=== PATIENT | male | born 1960 | race Caucasian/White ===

== ENCOUNTER → 2016-09-27 | Outpatient (CLI) | payer BC ==
[~2016-09-27] MED LIST: ATOR10TA88 PO; LEVO150T PO; LSN/20125 PO; MEGA D3 PO; NUTR1TAB4 PO
[2016-09-27 15:01] LABS: ESTIMATED AVERAGE GLUCOSE 120 mg/dl; HA1C FLAG Normal (Normal)
[2016-09-27 15:21] LABS: BLOOD UREA NITROGEN 17 mg/dl (7-18); BUN/CREATININE RATIO 15.7 (10-20); CALCIUM 9.2 mg/dl (8.5-10.1); CARBON DIOXIDE 29 mmol/L (21-32); CHLORIDE 101 mmol/L (98-107); GLUCOSE 110 mg/dl (70-99); POTASSIUM 3.8 mmol/L (3.5-5.1); SODIUM 138 mmol/L (136-145)
[2016-09-30 08:20] LABS: THYROGLOBULIN 0.4 NG/ML (2.8-40.9)
== END | disposition home or self-care (01) ==
LOC: C.LABSPEC 12:10
PROVIDERS: ATTEND Internal Medicine Geriatric Medicine
DX: C73 Malignant neoplasm of thyroid gland (principal); I10 Essential (primary) hypertension; E89.0 Postprocedural hypothyroidism; E83.119 Hemochromatosis, unspecified; Z86.39 Personal history of other endocrine, nutritional and metabolic disease

== ENCOUNTER → 2016-11-27 | Outpatient (CLI) | payer BC ==
[~2016-11-27] MED LIST changes: +ATOR10TA82 PO; -ATOR10TA88 PO
== END | disposition home or self-care (01) ==
LOC: C.LAB 13:49
PROVIDERS: ATTEND Internal Medicine Geriatric Medicine
DX: E89.0 Postprocedural hypothyroidism (principal)

== ENCOUNTER → 2017-03-20 | Outpatient (CLI) | payer BC ==
[~2017-03-20] MED LIST changes: -ATOR10TA82 PO; +ATOR10TA88 PO
[2017-03-20 15:04] LABS: BLOOD UREA NITROGEN 19 mg/dl (7-18); BUN/CREATININE RATIO 16.8 (10-20); CALCIUM 9.7 mg/dl (8.5-10.1); CARBON DIOXIDE 32 mmol/L (21-32); CHLORIDE 103 mmol/L (98-107); GLUCOSE 88 mg/dl (70-99); POTASSIUM 4.1 mmol/L (3.5-5.1); SODIUM 139 mmol/L (136-145)
[2017-03-20 15:16] LABS: CHOLESTEROL 125 mg/dl (0-200); HDL CHOLESTEROL 41 mg/dl; LDL CHOLESTEROL CALCULATED 42 mg/dl; TRIGLYCERIDES 209 mg/dl (0-150); VERY LOW DENSITY LIPOPROT CALC 42 mg/dl
[2017-03-21 06:25] LABS: ESTIMATED AVERAGE GLUCOSE 126 mg/dl; HA1C FLAG Normal (Normal)
[2017-03-22 10:37] LABS: THYROGLOBULIN 0.3 NG/ML (2.8-40.9)
== END | disposition home or self-care (01) ==
LOC: C.LAB 14:09
PROVIDERS: ATTEND Internal Medicine Geriatric Medicine
DX: C73 Malignant neoplasm of thyroid gland (principal); I10 Essential (primary) hypertension; E78.5 Hyperlipidemia, unspecified; E83.119 Hemochromatosis, unspecified; E89.0 Postprocedural hypothyroidism

== ENCOUNTER → 2017-10-23 | Outpatient (CLI) | payer BC ==
[~2017-10-23] MED LIST changes: +ATOR10TA82 PO; -ATOR10TA88 PO
[2017-10-23 12:34] LABS: HEMATOCRIT 47.5 % (42-52); HEMOGLOBIN 16.9 g/dL (14.0-18.0); MEAN CELL VOLUME 89.1 fL (80-100); MEAN CORPUSCULAR HEMOGLOBIN 31.7 pg (25-34); MEAN CORPUSCULAR HGB CONC 35.6 g/dl (32-36); PLATELET COUNT 223 K/uL (130-400); WHITE BLOOD COUNT 6.85 K/uL (4.8-10.8)
[2017-10-23 12:54] LABS: BASO % 0.1 %; BASO ABS # 0.01 K/uL (0-0.2); EOS % 3.5 %; EOS ABS # 0.24 K/uL (0-0.5); IG# 0.04 K/uL (0.00-0.02); LYMPH % 30.7 %; MONO ABS # 0.48 K/uL (0.11-0.59); NEUT % 58.1 %; NEUT ABS # 3.98 K/uL (1.4-6.5)
[2017-10-23 13:00] LABS: ALBUMIN 3.9 gm/dl (3.4-5.0); ALT/SGPT 49 U/L (12-78); BLOOD UREA NITROGEN 13 mg/dl (7-18); CALCIUM 9.3 mg/dl (8.5-10.1); CARBON DIOXIDE 26 mmol/L (21-32); CREATININE 1.05 mg/dl (0.60-1.40); GLUCOSE 95 mg/dl (70-99); POTASSIUM 3.9 mmol/L (3.5-5.1); SODIUM 136 mmol/L (136-145)
[2017-10-23 13:04] LABS: HEMOGLOBIN A1C 6.1 % (4.5-5.6)
[2017-10-23 13:11] LABS: ALKALINE PHOSPHATASE 85 U/L (45-117); AST/SGOT 32 U/L (15-37); TOTAL PROTEIN 7.5 gm/dl (6.4-8.2)
== END | disposition home or self-care (01) ==
LOC: C.LAB 11:11
PROVIDERS: ATTEND Internal Medicine Geriatric Medicine
DX: E11.9 Type 2 diabetes mellitus without complications (principal); C73 Malignant neoplasm of thyroid gland; I10 Essential (primary) hypertension; E83.119 Hemochromatosis, unspecified; E89.0 Postprocedural hypothyroidism; D47.2 Monoclonal gammopathy; N40.0 Benign prostatic hyperplasia without lower urinary tract symptoms; Z68.41 Body mass index [BMI] 40.0-44.9, adult

== ENCOUNTER → 2018-01-05 | Outpatient (CLI) | payer BC | END | disposition home or self-care (01) | LOC: C.LAB 13:17 | PROVIDERS: ATTEND Physician Assistant | DX: E89.0 Postprocedural hypothyroidism (principal) ==

== ENCOUNTER → 2018-04-08 | Outpatient (CLI) | payer BC ==
[~2018-04-08] MED LIST changes: +LISI20TA8 PO; -LSN/20125 PO
[2018-04-08 18:53] LABS: BLOOD UREA NITROGEN 21 mg/dl (7-18); CALCIUM 9.1 mg/dl (8.5-10.1); CARBON DIOXIDE 25 mmol/L (21-32); CHOLESTEROL 112 mg/dl (0-200); CREATININE 1.16 mg/dl (0.60-1.40); GLUCOSE 143 mg/dl (70-99); LDL CHOLESTEROL CALCULATED 20 mg/dl; POTASSIUM 3.6 mmol/L (3.5-5.1); SODIUM 136 mmol/L (136-145)
[2018-04-09 06:29] LABS: HEMOGLOBIN A1C 6.1 % (4.5-5.6)
== END | disposition home or self-care (01) ==
LOC: C.LAB 16:44
PROVIDERS: ATTEND Physician Assistant
DX: C73 Malignant neoplasm of thyroid gland (principal); I10 Essential (primary) hypertension; E89.0 Postprocedural hypothyroidism; E11.9 Type 2 diabetes mellitus without complications; E78.5 Hyperlipidemia, unspecified

== ENCOUNTER 2021-07-12 05:15 | Observation (INO) ==
--- NOTE | 2021-05-10 23:31 | PAT Medication Instructions ---
Medication Instructions Date of Service May 10, 2021 Home Medications Medication Instructions Recorded levothyroxine 150 mcg tablet 150 mcg PO QAM #90 tab 06/14/20 atorvastatin 10 mg tablet 10 mg PO HS #90 tab 08/03/20 3-in-1 Commode #1 ea 05/02/21 Wheeled Walker #1 ea 05/02/21 vit B6-mag cit,ox-potassium cit 3.75 mg-45 mg-45 mg-49.5 mg tablet ER (Theralith XR) 4 tab PO DAILY famotidine 20 mg tablet (Pepcid) 20 mg PO DAILY PRN naproxen sodium 220 mg tablet (Aleve) 220 mg PO Q12H PRN levothyroxine 150 mcg tablet 150 mcg PO QAM atorvastatin 10 mg tablet 10 mg PO HS esomeprazole magnesium 20 mg capsule,delayed release (Nexium) 20 mg PO QAM lisinopril 20 mg-hydrochlorothiazide 12.5 mg tablet 2 tab PO QAM ASK your surgeon for instructions naproxen sodium 220 mg tablet (Aleve) 220 mg PO Q12H PRN STOP taking 2 weeks before surgery (or as soon as possible if surgery is within 2 weeks) vit B6-mag cit,ox-potassium cit 3.75 mg-45 mg-45 mg-49.5 mg tablet ER (Theralith XR) 4 tab PO DAILY DO NOT take the morning of surgery famotidine 20 mg tablet (Pepcid) 20 mg PO DAILY PRN lisinopril 20 mg-hydrochlorothiazide 12.5 mg tablet 2 tab PO QAM Take morning of surgery With a small sip of water, OTHERWISE NOTHING TO EAT OR DRINK AFTER MIDNIGHT: levothyroxine 150 mcg tablet 150 mcg PO QAM esomeprazole magnesium 20 mg capsule,delayed release (Nexium) 20 mg PO QAM Take evening before surgery famotidine 20 mg tablet (Pepcid) 20 mg PO DAILY PRN (if needed) atorvastatin 10 mg tablet 10 mg PO HS Other Notes If you have any questions please call us at [phone] or [phone] or [phone] or [phone]
--- NOTE | 2021-05-13 09:19 | Anesthesiology Consultation ---
Date of Service May 13, 2021 Assessment & Plan (1) Encounter for pre-operative examination: COVID screening: Per assessment on 05/13: Travel screen negative, no known COVID- 19 positive contacts or current COVID-19 related symptoms. Patient vaccinated. Surgeon arranging preop COVID testing. Awaiting results. Chart Review Chart Review: Acceptable Risk for Surgery and Patient seen in Pre Admission Testing Teaching & Discussion Pre-Anesthesia Teaching/Discussion Notes: Instructed NPO after midnight before surgery,except medications with 15 cc of water. Medication instructions provided according to the PAT guidelines. History Surgery Operation Date: 06/07/21 10:40 Proposed Procedures p Left Total Hip Arthroplasty - Braeden Cox MD Height/Weight Height: 5 ft 11 in Weight: 123 kg Allergies Allergy/AdvReac Type Severity Reaction Status Date / Time latex Allergy Mild Rash Verified 05/11/21 14:53 Medications Home Medications Medication Instructions Recorded Confirmed Last Taken vit B6-mag cit,ox-potassium cit 4 tab PO DAILY tab 03/24/19 05/06/21 06/21/19 3.75 mg-45 mg-45 mg-49.5 mg tablet ER (Theralith XR) famotidine 20 mg tablet (Pepcid) 20 mg PO DAILY PRN 06/21/19 05/06/21 Unknown naproxen sodium 220 mg tablet 220 mg PO Q12H PRN 06/22/19 05/06/21 Unknown (Aleve) levothyroxine 150 mcg tablet 150 mcg PO QAM #90 tab 06/14/20 05/06/21 Unknown atorvastatin 10 mg tablet 10 mg PO HS #90 tab 08/03/20 05/06/21 Unknown 3-in-1 Commode #1 ea 05/02/21 05/02/21 Unknown Wheeled Walker #1 ea 05/02/21 05/02/21 Unknown esomeprazole magnesium 20 mg 20 mg PO QAM 05/02/21 05/06/21 Unknown capsule,delayed release (Nexium) lisinopril 20 2 tab PO QAM 05/06/21 05/06/21 Unknown mg-hydrochlorothiazide 12.5 mg tablet Past Medical History Medical History Bilateral hip joint arthritis Borderline diabetes GERD (gastroesophageal reflux disease) 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, phlebotomy as needed (most recent 07/2020) Hyperlipidemia Hypertension Hypothyroidism MGUS (monoclonal gammopathy of unknown significance) Follows with hematology Nephrolithiasis hx Obesity Osteoarthritis Thyroid cancer s/p thyroidectomy Exercise / Class Metabolic Activity II 4-5 Yardwork/Stairs/Walk up hill Past Family History Family History Father Cancer Other Hypertension No significant family history Past Surgical History Surgical History History of adenoidectomy History of cholecystectomy History of colonoscopy History of mandibular surgery elongated jaw repair History of orchiectomy History of thyroidectomy, total 2012 History of tonsillectomy History of tooth extraction Hx of lithotripsy Past Anesthesia History No Hx of Anesthesia Complications (except PONV) and No Family Hx of Anesthesia Complications History of PONV No Hx of Motion Sickness and History of PONV Social History Smoking Status: Never smoker Do You Dip or Chew Tobacco: No Hx Alcohol Use: Yes Alcohol type: beer alcohol intake frequency: holidays/special occasions only Hx Substance Use: No substance use type: does not use Review of Systems Patient denies chest pain, shortness of breath, dyspnea on exertion, fever, chills, cough, wheezing, palpitations. Physical Exam Vital Signs VITALS BP 142/82 P 63 TEMP 98.3 SP02 95%RA RESP 16 PHYSICAL Full cervical extension range of motion. Full TMJ range of motion. TMD 4 finger breaths Mallampati Score 1 (long tongue) Dentition: missing molars, right lower side tooth missing Lungs: clear throughout to auscultation Cardiac: regular rate and rhythm, no murmurs noted Spine: normal Carotid arteries: negative bruit Extremities: no edema Lab Results Anesthesia Preop Results Results Anesthesia Widget: WBC 5.98 K/uL (4.8-10.8) 05/13/21 Hgb 16.3 g/dL (14.0-18.0) 05/13/21 Hct 44.5 % (42-52) 05/13/21 Plt 212 K/uL (130-400) 05/13/21 Na 138 mmol/L (136-145) 05/13/21 K 3.9 mmol/L (3.5-5.1) 05/13/21 Cl 104 mmol/L (98-107) 05/13/21 CO2 28 mmol/L (21-32) 05/13/21 BUN 19 mg/dl (7-18) H 05/13/21 Creat 1.06 mg/dl (0.6-1.4) 05/13/21 Glucose Level 120 mg/dl (70-99) H 05/13/21 PT 10.0 Seconds (9.0-12.0) 05/13/21 PTT 24.9 Seconds (21.0-31.0) 05/13/21 INR 1.0 (0.9-1.1) 05/13/21 Blood Type A Positive 05/13/21 Antibody Screen NEGATIVE 05/13/21 Testing Electrocardiogram Date: 05/13/21 SB at 59bpm. unconfirmed report. Chest X-Ray Date: 05/13/21 Findings: + NAD
--- NOTE | 2021-07-09 11:08 | History and Physical Report ---
DATE OF ADMISSION: 07/12/2021 CHIEF COMPLAINT: Left hip and groin pain. HISTORY OF PRESENT ILLNESS: The patient is a 61-year-old gentleman who presents for surgical treatme nt of his left hip. He has got a 6-year history of gradually progressive increased pain and discomfo rt in his left hip. He takes Aleve, which helps minimally. He does have a history of hemochromatosi s in the past, treated with phlebotomy intermittently for the past 20 years. His hips really bother him. He limps all the time, but more as the day goes on. He has difficulty putting his shoes and so cks on. He has nighttime discomfort. Denies any back or radicular-type symptoms. PAST MEDICAL HISTORY: 1. Hypertension. 2. Thyroid cancer, status post resection. 3. Hemochromatosis x20 years. 4. Obesity, BMI of 38. PAST SURGICAL HISTORY: Includes: 1. Thyroid surgery. 2. Kidney stone surgery. 3. Cholecystectomy. 4. Testicular surgery. 5. Tonsillectomy. 6. Oral surgery. ALLERGIES: None. CURRENT MEDICATIONS: Include: 1. Levothyroxine. 2. Lisinopril/hydrochlorothiazide. 3. Atorvastatin. 4. Nexium. 5. Pepcid. 6. Aleve. 7. Vitamin B6. 8. Magnesium. SOCIAL HISTORY: A 61-year-old male. He lives in [place]. He is single. Rare alcohol intake. H e does state he has quite a bit of family and friends that will assist in his care. FAMILY HISTORY: No prostate cancer or heart disease. REVIEW OF SYSTEMS: Negative for diabetes. He does have a history of thyroid cancer, status post res ection. No history of DVT or PE. No known bleeding problems. He does have hemochromatosis treated with intermittent phlebotomies over the past 20 years. PHYSICAL EXAMINATION: GENERAL: A fairly large middle-aged male. Looks to be in reasonably good health. HEENT: Benign. NECK: Supple. No lymphadenopathy. LUNGS: Clear to auscultation. HEART: Has a regular rate and rhythm. ABDOMEN: Soft, nontender, nondistended. EXTREMITIES: Grossly neurovascularly intact except as follows: Examination of the left leg and hip reveals the patient walks with an antalgic gait. He is about 0.5 cm short on the left side compared to the right. No knee effusion. He has a very stiff hip with limited internal rotation to neutral a t best. This re-creates his pain. Negative straight leg raise. He is neurologically intact. X-RAYS: X-rays of the left hip were reviewed. It shows advanced left hip DJD. He has complete loss of his superior joint space and circumferentially around his hip. He has got osteophytes around the femoral head as well as the acetabulum. ASSESSMENT: A 61-year-old male with multiple medical comorbidities including obesity, hemochromatosi s, hypertension, thyroid cancer with advanced left hip degenerative joint disease. He has failed con servative measures and would like to have his left hip replaced. He is hoping to do this as an outpa tient. PLAN: We are going to take him to the operating room and do a left total hip replacement. The risks and benefits of this procedure were explained to the patient including, but not limited to DVT, PE, , infection, neurological injury, vascular injury, bleeding problem, pain, limited range of kaur on, stiffness, failure to relieve his symptoms, incomplete relief of symptoms, need for further surge ry in the future, fracture, leg length inequality, etc. The patient understands and desires to proce ed. Informed consent was obtained. We did talk about holding his lisinopril on the morning of surgery. He is planning to be discharged to home with some assistance from family and friends and home health. He is hoping to do this as an outpatient. We will see him back 2 weeks postop. Job ID: [id number]
[2021-07-12] MEDS ORDERED: LR 500ML BOLUS, THEN 15ML/HR IV SCH (06:00)
[2021-07-12] MEDS ORDERED: BUPIVACAINE LIPOSOME/PF 266 MG, BUPIVACAINE/EPINEPHRINE 50 ML, SODIUM CHLORIDE 0.9% 30 ... INFIL SCH (06:00)
[2021-07-12] MEDS ORDERED: TRANEXAMIC ACID 1,000 MG **IV Pre-op IV SCH (06:00)
[2021-07-12] MEDS ORDERED: LR 60ML/HR IV SCH (06:00)
[2021-07-12] MEDS ORDERED: ACETAMINOPHEN 500 MG TAB PO SCH (06:00)
[2021-07-12] MEDS ORDERED: GABAPENTIN 600 MG DOSE PO SCH (06:00)
[2021-07-12] MEDS ORDERED: FAMOTIDINE 20 MG TAB PO SCH (06:00)
[2021-07-12] MEDS ORDERED: LIDOCAINE 2%/EPINEPHRINE 1:200,000 20 ML SDV ONE (06:24)
[2021-07-12] MEDS ORDERED: PROPOFOL IV EMULSION 10 MG/ML 20 ML VIAL IV ONE (06:37)
[2021-07-12] MEDS ORDERED: LIDOCAINE 2% 2 ML VIAL/AMP(20MG/ML) INFIL ONE (06:37)
[2021-07-12] MEDS ORDERED: MoRPHine SULFATE PF 1 MG/ML 10 ML AMP/VIAL ONE (06:38)
[2021-07-12] MEDS ORDERED: MIDAZOLAM HCL 1 MG/ML 2ML VIAL ONE (06:38)
[2021-07-12] MEDS ORDERED: fentaNYL citrate 100 MCG/2 ML VIAL ONE ×2 (06:38→09:35)
[2021-07-12] MEDS ORDERED: EPINEPHrine INJ 1 MG/ML AMP ONE (06:39)
[2021-07-12] MEDS ORDERED: BUPIVACAINE 0.25% 30 ML VIAL ONE (06:39)
[2021-07-12] MEDS ORDERED: BUPIVACAINE 0.5 % 5 MG/1 ML MPF 30ML VIAL ONE (06:43)
--- NOTE | 2021-07-12 06:58 | History & Physical Bridge Note ---
Date of Service July 12, 2021 History & Physical Bridge Note I have examined the patient, reviewed the History & Physical and in the interval since the performance of the History & Physical I have noted the following changes of clinical significance: no changes noted
[2021-07-12] MEDS ORDERED: KETAMINE 50 MG/5 ML SYRINGE ONE (07:37)
[2021-07-12] MEDS ORDERED: VASOPRESSIN 20 UNIT/ML VIAL ONE (08:19)
[2021-07-12] MEDS ORDERED: GLYCOPYRROLATE 0.2 MG/ML VIAL ONE (08:19)
[2021-07-12] MEDS ORDERED: PHENYLEPHRINE HCL 10 MG/ML VIAL ONE (08:19)
[2021-07-12] MEDS ORDERED: ONDANSETRON INJ 2 MG/ML 2 ML VIAL ONE ×2 (08:19→09:36)
[2021-07-12] MEDS ORDERED: PHENYLEPHRINE 100MCG/ML 5ML SYR ONE (08:19)
[2021-07-12] MEDS ORDERED: ePHEDrine sulfate 50 MG/ML SYR ONE (08:19)
[2021-07-12] MEDS ORDERED: oxyCODONE/ACETAMINOPHEN 5mg/325mg TAB PO PRN (09:10)
--- NOTE | 2021-07-12 09:22 | Operative Report ---
Post Operative Report Pre & Post Diagnosis Operation Date: 07/12/21 07:00 Pre-Op Diagnosis: Degenerative Joint Disease, Left Hip Post-Op Diagnosis: Degenerative Joint Disease, Left Hip I identified the patient and participated in the time-out.: Yes Procedure Operation Date: 07/12/21 07:00 Actual Procedures p Left Total Hip Arthroplasty(Left) - Braeden Cox MD Surgeon Braeden Cox MD Finger Lift Operator Aime Vasquez PA-C Estimated Blood Loss 200 Findings Consistent with Post-Op Diagnosis Operative findings were advanced left hip DJD. Extensive grade 4 [id number] disease the femoral head and acetabulum. He had a large centralized acetabular osteophyte as well as some anterior acetabular osteophytes. He had osteophytes around the femoral head. Very stiff hip. Moderate-sized joint effusion. Fluids 1600 cc Specimens Left femoral head sent for pathology Drains None Anesthesia Type MAC Epidural Complications none Disposition Accompanied Patient To Recovery: Yes Indications Patient is a 61-year-old fairly active gentleman has had a 5+ year history of gradual progressive increased left hip pain discomfort stiffness. He failed conservative measures. X-rays showed advanced left hip arthritis. He elected proceed with surgical treatment. Description of Procedure Operative implants consist of: 1 Biomet Vanguard size 56 mm acetabular shell. 2. 6.5 cancellous acetabular screws 1 of 35 mm in length 1 to 25 mm length. 3. Cartwright hole staffing operations manager. 4. Highly cross-linked polyethylene liner with a 56 mm outer diameter and a 36 mm inner diameter. 5. Kimberly Corail size 10 KLA femoral stem. 6. +5/36 mm ceramic articular ball. The patient was taken to the operating, identified, placed on the operating table supine position but all contact areas were properly padded. IV antibiotics tried by anesthesia team. A epidural anesthetic been implemented ho lding area. The patient was then placed in the right lateral decubitus position. An axillary roll was placed. A Stulberg hip positioner was used for positioning. The left hip and leg were then prepped and draped in the usual sterile fashion. A posterior lateral approach to the left hip was then performed through a curvilinear incision centered over the greater trochanter. Sharp dissection was carried through subcutaneous tissue down to level the IT band gluteal fascia the IT band gluteal fascia then incised longitudinally in line with skin incision. The underlying greater bursa was excised. The piriformis and external rotators and the posterior capsule were then released from the posterior aspect hip joint as a single layer. Great care was taken throughout the procedure protect the sciatic nerve at all times. The hip was then internally rotated and dislocated. Femoral neck osteotomy cut was made with Final Cut about 8 mm above the lesser trochanter. Femoral head was removed and sent for pathology. The femur was retracted anteriorly. Attention drawn the acetabulum. The acetabular labrum was excised. Pulvinar fat was excised. Sequential reaming the acetabular was then performed beginning with a 47 and progressing up to 55. I reamed a little bit with a 56 reamer and then placed a 56 cup in about 40 degrees lateral opening and 20 degrees of anteversion. It was fixed with two 6.5 cancellous acetabular screws. Some anterior osteophytes removed. A trial liner was placed. Attention drawn the femur. Proximal femur was entered with a cookie-cutter followed by canal finder. His cancellous bone was extremely supportive and style. I then broached begin with a size 8 and progressing up to 10. The 10 provided excellent fit. I used a calcar reamer to smooth off the calcar. Then trialed the hip and the +5 articular ball provide full stability in full extension and external rotation and flexion to 9 degrees internal rotation over 50 degrees. Leg lengths seemed appropriate and soft tissue tension seemed appropriate. I elect to place these implants. All trial implants were removed. An apex hole staffing operations manager was placed but highly cross-linked polyethylene liner was placed. A DePuy size 10 KLA femoral stem was impacted in position. A +5/36 mm ceramic articular ball was placed. Hip was located once again found to be stable. Attention drawn toward closing. The wound was irrigated scopes also pulsatile lavage solution. I did inject locally with 60 cc of half percent Marcaine with epinephrine. The posterior capsule and external rotators were then repaired through drill holes in the posterior trochanter with #2 Tycron suture in a single layer. The IT band gluteal fascia then closed #1 PDS suture running fashion the subcutaneous tissue was then closed with 2 layers the deep layer #1 Vicryl suture subcutaneous tissues with 2-0 Dexon suture in a buried interrupted fashion the skin was closed skin enrique. Legs then cleaned dried a sterile dressing was Xeroform, 4 x 4's, ABD pad, foam tape was applied. The patient was then transferred to the recovery room in stable condition. Patient tolerated procedure well and there were no complications. Aime Vasquez, my physician senior executive assistant, was present for the entire procedure. His assistance was essential and required for appropriate patient positioning, prepping and draping, surgical exposure, performing the technical details of the operation, placement the implants, closure of the wound, and placement of the sterile bandage. I attest to the content of the Intraoperative Record and any orders documented therein. Any exceptions are noted below.
[2021-07-12] MEDS ORDERED: ONDANSETRON INJ 2 MG/ML 2 ML VIAL IV PRN ×2 (09:33→16:40)
[2021-07-12] MEDS ORDERED: ATROPINE SULFATE 0.1 MG/ML 10ML SYR IV PRN ×3 (09:33→10:20)
[2021-07-12] MEDS ORDERED: ePHEDrine sulfate 50 MG/ML AMP IV PRN ×3 (09:33→10:20)
[2021-07-12] MEDS: HYDROmorphone INJ 0.5 MG/0.5 ML SYR IV PRN ×2 (09:45→09:50)
--- NOTE | 2021-07-12 10:02 | XRay Report ---
AP PELVIS, CROSSTABLE LATERAL LEFT HIP History: Left total hip arthroplasty. Degenerative arthritis. Postop. FINDINGS: The patient is status post a left total hip arthroplasty. The hardware is intact. No fractu re or dislocation. Skin enrique are in place. IMPRESSION: Left total hip arthroplasty. No evidence for hardware complication. ACT 112: Negative or not required by law. Electronically signed by: Joshua Downey M.D. 07/12/2021 10:01 AM
[2021-07-12] MEDS ORDERED: DROPERIDOL 5 MG/2 ML VIAL IV STA (10:13)
[2021-07-12] MEDS ORDERED: fentaNYL citrate 100 MCG/2 ML VIAL IV PRN (10:20)
[2021-07-12] MEDS ORDERED: KETOROLAC 30 MG/ML VIAL IV ONE (10:26)
[2021-07-12] MEDS ORDERED: KETOROLAC 30 MG/ML VIAL ONE (10:28)
--- NOTE | 2021-07-12 12:13 | Anesthesiology Progress Note ---
Date of Service July 12, 2021 Anesthesia Post Procedure Vital Signs Vital Signs: Temp Pulse Pulse Resp BP Pulse Ox 07/12/21 12:00 36.5 C 77 14 120/58 L 94 07/12/21 11:45 36.5 C 82 14 112/62 94 07/12/21 11:30 36.5 C 80 14 114/62 97 07/12/21 11:15 36.6 C 81 14 110/62 92 07/12/21 10:55 36.3 C L 83 14 103/64 93 07/12/21 10:45 36.3 C L 78 14 114/68 97 07/12/21 10:35 36.3 C L 73 15 107/67 95 07/12/21 10:25 36.3 C L 67 29 H 107/67 91 07/12/21 10:15 36.3 C L 82 30 H 116/75 98 07/12/21 10:05 36.3 C L 74 22 111/69 99 07/12/21 10:00 36.3 C L 77 33 H 106/69 95 07/12/21 09:50 79 25 H 107/73 95 07/12/21 09:40 92 H 29 H 96/62 L 97 07/12/21 09:30 103 H 21 110/74 98 07/12/21 09:20 88 25 H 112/72 98 07/12/21 09:10 36.5 C 93 H 18 114/75 98 07/12/21 05:37 36.6 C 106 H 20 133/74 97 Pain Intensity Left Hip: Pain Intensity: 5 Transfer of Care Handoff Completed per policy Notes Mental Status: alert / awake / arousable and participated in evaluation Patient Amnestic to Procedure: Yes Nausea / Vomiting: adequately controlled Pain: adequately controlled Airway Patency, RR, SpO2: stable & adequate BP & HR: stable & adequate Hydration State: stable & adequate Neuraxial Anesthesia: was administered and sensory block resolved Anesthetic Complications: no major complications apparent and Pt Satisfied with anesthetic care
[2021-07-12] MEDS ORDERED: ceFAZolin 2000MG 2,000 MG/15 ML SYR IV ONE (15:00)
[2021-07-12] MEDS ORDERED: METOCLOPRAMIDE HCL INJ 5 MG/ML 2 ML VIAL IV PRN (16:40)
[2021-07-12] MEDS ORDERED: ALUMINUM/MAGNESIUM SUSP 30 ML UDC PO PRN (16:40)
[2021-07-12] MEDS ORDERED: HYDROmorphone INJ 0.5 MG/0.5 ML SYR IV PRN (16:40)
[2021-07-12] MEDS ORDERED: FAMOTIDINE 20 MG TAB PO PRN (16:40)
[2021-07-12] MEDS ORDERED: traMADol HCL 50 MG TABLET PO PRN (16:40)
[2021-07-12] MEDS ORDERED: MAGNESIUM HYDROXIDE SUSP 30 ML UDC PO PRN (16:40)
[2021-07-12] MEDS ORDERED: NALOXONE HCL 0.4 MG/1 ML VIAL/CARP IV PRN (16:40)
[2021-07-12] MEDS ORDERED: bisacodyL 10 MG SUPP PR PRN (16:40)
[2021-07-12] MEDS ORDERED: ONDANSETRON 4 MG OD TAB PO PRN (17:00)
[2021-07-12] MEDS: ACETAMINOPHEN 500 MG TAB PO SCH ×2 (17:28→20:19)
[2021-07-12] MEDS: KETOROLAC 30 MG/ML VIAL IV SCH ×2 (17:28→23:26)
[2021-07-12] MEDS: SODIUM CHLORIDE 0.9% 1000ML 1,000 ML IV SCH (17:29)
[2021-07-12] MEDS ORDERED: KETOROLAC TROMETHAMINE 10 MG TABLET PO SCH (18:00)
[2021-07-12] MEDS ORDERED: TRANEXAMIC ACID / 0.7% NACL 1,000 MG/100 ML BAG IV SCH (20:00)
[2021-07-12] MEDS: ceFAZolin 2000MG 2,000 MG/15 ML SYR IV SCH (20:18)
[2021-07-12] MEDS: DOCUSATE SODIUM 100 MG CAP PO SCH (20:20)
[2021-07-12] MEDS: ASPIRIN 81 MG ECTAB PO SCH (20:20)
[2021-07-12] MEDS ORDERED: SENNA 8.6 MG TAB PO SCH (21:00)
[2021-07-12] MEDS ORDERED: ATORVASTATIN 10 MG TAB PO SCH (21:00)
[2021-07-13] MEDS: KETOROLAC 30 MG/ML VIAL IV SCH ×2 (04:57→12:23)
[2021-07-13] MEDS: ceFAZolin 2000MG 2,000 MG/15 ML SYR IV SCH (04:57)
[2021-07-13] MEDS: SODIUM CHLORIDE 0.9% 1000ML 1,000 ML IV SCH (05:23)
[2021-07-13 05:56] LABS: Basophils # (auto) 0.01 K/uL (0-0.2); Basophils % (auto) 0.1 %; Eosinophils # (auto) 0.09 K/uL (0-0.5); Eosinophils % (auto) 1.1 %; Hematocrit (blood only) 38.1 % (42-52); Hemoglobin 13.7 g/dL (14.0-18.0); Immature Granulocytes # (auto) 0.02 K/uL (0.00-0.02); Immature Granulocytes % (auto) 0.2 %; Lymphocytes # (auto) 1.01 K/uL (1.2-3.4); Lymphocytes % (auto) 12.5 %; Mean Corpuscular Volume 91.8 fL (80-100); Mean Platelet Volume 10.6 fL (7.4-10.4); Monocytes # (auto) 1.26 K/uL (0.11-0.59); Monocytes % (auto) 15.6 %; Neutrophils # (auto) 5.71 K/uL (1.4-6.5); Neutrophils % (auto) 70.5 %; Platelet Count 191 K/uL (130-400); RDW Coefficient of Variation 13.3 % (11.5-14.5); RDW Standard Deviation 44.3 fL (36.4-46.3); Red Blood Count 4.15 M/uL (4.7-6.1)
[2021-07-13] MEDS ORDERED: LEVOTHYROXINE SODIUM 150 MCG TABLET PO SCH (06:30)
[2021-07-13 06:33] LABS: BUN Creatinine Ratio 16.4 (10-20); Calcium 8.7 mg/dl (8.5-10.1); Creatinine Clr Calc Pharmacy 102.1 ml/min; Est GFR (African American) 93.7 ml/min; Est GFR (Non-African American) 80.9 ml/min; Potassium 3.4 mmol/L (3.5-5.1)
[2021-07-13] MEDS: ACETAMINOPHEN 500 MG TAB PO SCH (07:37)
[2021-07-13] MEDS: DOCUSATE SODIUM 100 MG CAP PO SCH (07:38)
[2021-07-13] MEDS: ASPIRIN 81 MG ECTAB PO SCH (07:38)
[2021-07-13] MEDS ORDERED: dexAMETHasone 10 MG in SYRINGE 0 ML IV SCH (08:00)
--- NOTE | 2021-07-13 08:35 | Progress Notes ---
DATE OF SERVICE: 07/13/2021. SUBJECTIVE: A 61-year-old gentleman postoperative day 1 from left hip replacement. He is doing pret ty well this morning. Much more awake, alert and appropriate. His pain is controlled. No chest brando n or shortness of breath. Not feeling dizzy or lightheaded. He was planning on being discharged to home, but did not pass PT and was pretty sedated yesterday. He was given quite a bit of pain medicin e in recovery room. OBJECTIVE: VITAL SIGNS: Temperature 36.9. Vital signs are stable. GENERAL: Physical examination shows a pleasant middle-aged male. He is sitting up in bed, looks juancho te comfortable this morning. He is awake, alert and oriented. LUNGS: Clear to auscultation. HEART: Regular rate and rhythm. ABDOMEN: Soft, nontender, nondistended. EXTREMITIES: Grossly neurovascularly intact except as follows: Examination of the left hip and leg reveals the dressing to be clean, dry, and intact. The leg lengths are equal. Hip is located. His thigh is soft and supple. He can dorsiflex and plantarflex his foot appropriately. He is neurologic ally intact. LABORATORY DATA: Hemoglobin 13.7. Hematocrit 38.1. Electrolytes are stable. ASSESSMENT: A 61-year-old gentleman, postoperative day 1 from a left hip replacement, doing much bet ter. He was pretty sedated and difficult to awaken and failed therapy yesterday. He was given quite a bit of pain medicine in the recovery room, which probably contributed to some of this. He looks t o be much better this morning. PLAN: 1. DVT prophylaxis including thigh-high TEDs, SCDs, and aspirin twice a day. 2. PT/OT. He can weight bear as tolerated. Left total hip protocol. 3. Pain control, doing okay with current pain regimen. 4. Disposition: Plan to discharge to home with some home health later today if he does okay in ther apy. Job ID: [id number]
[2021-07-13] MEDS ORDERED: [UNRECOGNIZED DRUG - OTHER] PO SCH (09:00)
[2021-07-13] MEDS ORDERED: DOCUSATE SODIUM/SENNA 50/8.6MG TAB PO SCH (09:00)
[2021-07-13] MEDS ORDERED: PANTOprazole 40 MG TAB PO SCH (09:00)
[2021-07-13] MEDS ORDERED: MULTIVITAMIN TAB PO SCH (09:00)
[2021-07-13] MEDS ORDERED: VIT B6 MAG CIT OXID POTASS CIT PO SCH (09:00)
[2021-07-13] MEDS ORDERED: TAMSULOSIN HCL 0.4 MG CAP PO SCH (09:00)
[2021-07-13] MEDS ORDERED: LISINOPRIL/HCTZ 20/12.5MG 1 TAB TAB PO SCH (09:00)
--- NOTE | 2021-07-18 06:35 | Discharge Summary ---
Date of Service July 18, 2021 Discharge Data Procedures Performed Operation Date: 07/12/21 07:00 Actual Procedures p Left Total Hip Arthroplasty(Left) - Braeden Cox MD Hospital Course (1) S/P total left hip arthroplasty: This is a 61 year old patient admitted on 07/12/21 and underwent total hip arthroplasty. He tolerated the procedure well and there were no complications. Transferred to the PACU post op and later to the orthopedic floor for further care. He did not pass physical therapy initially and was admitted over night. He was given ancef for antibiotic prophylaxis. He was also given MALORIE stockings, SCDs, and aspirin for DVT prophylaxis. Hemoglobin, hematocrit, and vital signs were monitored during his hospital stay and remained stable. Did not require any blood transfusions. There were no complications during his hospital stay. By post op day #1 the patient was tolerating a regular diet, pain was reasonably controlled with oral pain medicine, and he was participating in physical therapy. On post op day #1 the patient was discharged home and set up with home health care. He was given printed discharge instructions. Continue physical therapy, weight bearing as tolerated. Continue hip precautions. Continue MALORIE stockings. Follow up approximately 2 weeks post op or sooner if there are problems or concerns. Coding Level of Care Code None Diagnoses S/P total left hip arthroplasty Z96.642
== END 2021-07-13 13:51 | disposition home health service (06) ==
LOC: 3E 05:15 → ASU 05:15

== ENCOUNTER 2025-06-16 10:10 | Inpatient (IN) ==
--- NOTE | 2025-06-11 08:43 | Anesthesiology Consultation ---
Date of Service June 11, 2025 Assessment & Plan (1) Encounter for pre-operative examination: Plan - check BSG am DOS. - hemochromatosis with scheduled phlebotomy after surgery 06/30-last saw heme/onc 06/2024 "...would like to maintain ferritin below 100...levels every 6 months for phlebotomy..." Ferritin 12/30/2024 35. - Per concrete handler on 06/09/25: No known infectious disease contacts, current infectious disease symptoms in past 10 days or COVID positive test result in the past 30 days. Chart Review Chart Review: Acceptable Risk for Surgery and Patient NOT seen in Pre Admission Testing History Surgery Operation Date: 06/16/25 12:40 Proposed Procedures p Robotic Assisted Laparoscopic Retropubic Prostatectomy, Possible Open, Possible Pevlic Lymph Node Dissection - Faustino Hutchinson MD Height/Weight Height: 5 ft 11 in Weight: 122.47 kg Allergies Allergy/AdvReac Type Severity Reaction Status Date / Time latex Allergy Mild Rash Verified 06/09/25 11:16 Medications Home Medications Medication Instructions Recorded Confirmed Last Taken vit B6-mag cit,ox-potassium cit 4 tab PO DAILY 03/24/19 06/09/25 07/08/23 3.75 mg-45 mg-45 mg-49.5 mg tablet ER (Theralith XR) famotidine 20 mg tablet (Pepcid) 20 mg PO DAILY PRN Acid Reflux 06/21/19 06/09/25 07/06/23 lisinopril 20 2 tab PO QAM #180 tabs 05/05/24 06/09/25 Unknown mg-hydrochlorothiazide 12.5 mg tablet tamsulosin 0.4 mg capsule 0.4 mg PO DAILY #90 caps 08/22/24 06/09/25 Unknown multivitamin (Daily Multi-Vitamin 1 tab PO DAILY 11/10/24 06/09/25 Unknown tablet) levothyroxine 150 mcg tablet 150 mcg PO .COMPLEX #60 tabs 12/02/24 06/09/25 Unknown atorvastatin 10 mg tablet 10 mg PO HS #90 tabs 01/23/25 06/09/25 Unknown esomeprazole magnesium 20 mg 20 mg PO DAILY PRN Acid Reflux 03/10/25 06/09/25 Unknown capsule,delayed release (Nexium) krill 300 mg-omega 3 90 mg-dha 24 1 cap PO DAILY 03/10/25 06/09/25 Unknown mg-epa 50 [id number] capsule naproxen sodium 220 mg capsule 440 mg PO DAILY PRN Pain 03/10/25 06/09/25 Unknown (Aleve) amoxicillin 500 mg tablet See Rx Instructions PO DAILY #14 04/07/25 06/09/25 Unknown tabs levothyroxine 175 mcg tablet 175 mcg PO .COMPLEX #45 tabs 04/22/25 06/09/25 Unknown sildenafil 100 mg tablet 100 mg PO DAILY PRN sexual 06/08/25 06/09/25 Unknown activity #20 tabs Past Medical History Medical History Borderline diabetes GERD (gastroesophageal reflux disease) 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, phlebotomy as needed (most recent 04/2024) scheduled to have done 06/30/25 Hyperlipidemia Hypertension Hypothyroidism MGUS (monoclonal gammopathy of unknown significance) Follows with hematology Nausea and vomiting after administration of anesthetic agent Nephrolithiasis hx Obesity Osteoarthritis Prostate cancer (12/08/24) Pulmonary nodules Thyroid cancer s/p thyroidectomy Past Family History Family History Father Cancer Brother Cancer Prostate Grandfather (Paternal) Cancer Prostate Other Hypertension No significant family history Past Surgical History Surgical History History of adenoidectomy History of cholecystectomy History of colonoscopy History of mandibular surgery elongated jaw repair History of orchiectomy History of thyroidectomy, total 2012 History of tonsillectomy History of tooth extraction History of total left hip arthroplasty Hx of lithotripsy Social History Smoking Status: Never smoker Do You Dip or Chew Tobacco: No Hx Alcohol Use: Yes Alcohol type: beer alcohol intake frequency: a few times a month Hx Substance Use: No substance use type: does not use Lab Results Anesthesia Preop Results Results Anesthesia Widget: WBC 7.18 K/ul (4.8-10.8) 06/09/25 Hgb 16.0 g/dl (14.0-18.0) 06/09/25 Hct 44.2 % (42.0-52.0) 06/09/25 Plt 220 K/uL (130-400) 06/09/25 Na 140 mmol/L (136-145) 06/09/25 K 3.6 mmol/L (3.5-5.1) 06/09/25 Cl 102 mmol/L (98-107) 06/09/25 CO2 32 mmol/L (21-32) 06/09/25 BUN 24 mg/dl (6-23) H 06/09/25 Creat 0.97 mg/dl (0.6-1.4) 06/09/25 Glucose Level 110 mg/dl (70-99(Fasting)) H 06/09/25 TSH 1.237 uIu/ml (0.300-4.500) 05/28/25 Testing Electrocardiogram Date: 06/09/25 NSR, rate 87 bpm Chest X-Ray Date: 06/09/25 The cardiomediastinal silhouette is unremarkable. The lungs and pleural spaces are clear. There is no pneumothorax. The bony thorax appears intact. IMPRESSION: No active disease in the chest. Cervical Spine Date: 11/10/24 There is moderate degenerative disc disease at the mid and lower cervical spine. There are chronic calcifications in the posterior soft tissues, likely sequela of old injury. No acute fracture or subluxation. There is neural foraminal narrowing at C5-6 and C6-7. IMPRESSION: No acute fracture seen. Degenerative changes as described. Other Testing PET scan 01/21/25 1. Small area of increased uptake at the prostate. No other increased uptake seen to suggest metastatic disease. 2. Suggest follow-up chest CT in one year for the small pulmonary nodules.
[~2025-06-16 10:10] MED LIST changes: +ACETAMINOPHEN 1000 MG/100 ML IV IV ONE; -ATOR10TA82 PO; -LEVO150T PO; -LISI20TA8 PO; -MEGA D3 PO; -NUTR1TAB4 PO
[2025-06-16] MEDS ORDERED: MIDAZOLAM HCL 1 MG/ML 2ML VIAL ONE (10:20)
[2025-06-16] MEDS ORDERED: ONDANSETRON INJ 2 MG/ML 2 ML VIAL ONE ×2 (10:21→15:50)
[2025-06-16] MEDS ORDERED: LIDOCAINE 2% 2 ML VIAL/AMP(20MG/ML) INFIL ONE (10:21)
[2025-06-16] MEDS ORDERED: ROCURONIUM BROMIDE 10 MG/ML 5 ML VIAL IV ONE ×2 (10:21→14:11)
[2025-06-16] MEDS ORDERED: PROPOFOL IV EMULSION 10 MG/ML 20 ML VIAL IV ONE ×4 (10:21→15:56)
[2025-06-16] MEDS ORDERED: DEXAMETHASONE SOD INJ 4 MG/ML VIAL ONE (10:21)
[2025-06-16] MEDS: LACTATED RINGER'S 1,000 ML IV SCH (10:36)
[2025-06-16] MEDS: HEPARIN SOD 5,000 UNIT/0.5 ML VIAL SQ SCH ×2 (10:36→21:10)
[2025-06-16] MEDS ORDERED: ONDANSETRON INJ 2 MG/ML 2 ML VIAL IV PRN (11:57)
[2025-06-16] MEDS ORDERED: ATROPINE SULFATE 0.1 MG/ML 10ML SYR IV PRN (11:57)
[2025-06-16] MEDS ORDERED: PROMETHAZINE HCL 6.25 MG in SODIUM CHLORIDE 0.9% 50 ML IV PRN (11:57)
--- NOTE | 2025-06-16 12:40 | History & Physical Bridge Note ---
Date of Service June 16, 2025 History & Physical Bridge Note I have examined the patient, reviewed the History & Physical and in the interval since the performance of the History & Physical I have noted the following changes of clinical significance: no changes noted
[2025-06-16] MEDS: ceFAZolin 3000MG 3,000 MG/72.5 ML BAG IV SCH (13:17)
[2025-06-16] MEDS ORDERED: ePHEDrine sulfate 50 MG/5 ML SYR ONE (14:38)
[2025-06-16] MEDS: BUPIVACAINE 0.5 % 5 MG/1 ML MPF 30ML VIAL ONE (15:53)
[2025-06-16] MEDS ORDERED: SUGAMMADEX SODIUM 200 MG/2 ML VIAL IV ONE (15:53)
[2025-06-16] MEDS: BUPIVACAINE LIPOSOME 1.3% 266 MG/20 ML VIAL ONE (15:53)
[2025-06-16] MEDS ORDERED: KETOROLAC 30 MG/ML VIAL ONE (15:55)
[2025-06-16] MEDS ORDERED: HYDROmorphone INJ 2 MG/ML SYR/VIAL ONE (16:15)
--- NOTE | 2025-06-16 16:15 | Operative Report ---
[facility] Post Operative Report Pre & Post Diagnosis Operation Date: 06/16/25 11:50 Pre-Op Diagnosis: Malignant Neoplasm of Prostate Post-Op Diagnosis: Malignant Neoplasm of Prostate I identified the patient and participated in the time-out.: Yes Procedure Operation Date: 06/16/25 11:50 Actual Procedures p Robotic Assisted Laparoscopic Retropubic Prostatectomy, bilateral Pelvic Lymph Node Dissection(Not Applicable) - Faustino Hutchinson MD Surgeon Faustino Hutchinson MD Crepe Laminator Operator Aime Vasquez, PAC Estimated Blood Loss 30 Findings Consistent with Post-Op Diagnosis Specimens 1. Periprostatic fat 2. Left pelvic lymph nodes 3. Right pelvic lymph nodes 4. Prostate and seminal vesicles Description of Procedure The patient was identified in the preoperative holding area, appropriate informed consents were reviewed and completed, and he was transported to the operating suite. Subcutaneous heparin was administered in the pre-operative holding area. Upon arrival in the operating suite, he received appropriate antibiotics and general anesthesia and was positioned supine and prepped in sterile fashion. A Damon catheter was inserted in the sterile field. A Veress needle was passed per umbilicus with uniform insufflation of the abdomen to 15mmHg. He was placed in 26 degrees of Trendelenburg. A periumbilical incision was then made to accommodate a robotic port and entry was made using a visual obturator. Inspection of the abdomen was carried out, and there was no evidence of traumatic entry or injury secondary to the Veress needle. After confirming a clear anterior abdominal wall, ports were subsequently placed in standard robotic prostatectomy fashion without incident. To begin the robotic portion of the case, the left lateral aspect of the sigmoid was mobilized off of the left pelvic side wall to allow the pouch of Srinivasa to be appropriately visualized. I then made an incision in the pouch of Srinivasa, overlying the seminal vesicles. Both SVs as well as the ampullae of the vasa were entirely dissected, with the vasa transected 3cm from the prostate. Dissection posterior to the prostate was completed, splitting Denonvilliers' fascia. Of note, the left SV was firm, and small compared to the right. The medial umbilical ligaments were then controlled with bipolar electrocautery just inferior to the umbilicus. Following cauterization, they were divided utilizing monopolar cautery. A peritoneal incision was carried from this location to the medial aspect of the internal inguinal rings bilaterally with care to avoid opening through the ring. This incision was concluded when the vas deferens was reached. Dissection of the bladder and prostate off of the posterior aspect of the pubic arch was completed allowing full visualization of the prostate. The fat overlying the prostate was removed en bloc and passed off the table as a specimen labeled "periprostatic fat". The endopelvic fascia was cleared during this portion of the procedure, and subsequently opened - first on the right and then the left. The incision through the endopelvic fascia began near the prostate-bladder junction and was carried to the apex with extreme care to preserve all lateral levator musculature as well as the periurethral musculature and sphincter complex. I additionally preserved the puboprostatic ligaments. I then controlled the DVC with a 2-0 V-lock suture in overlapping/figure of 8 fashion. The lymph node dissection was then conducted. External iliac vessels were identified on the pelvic side wall. The packet of fat and lymphatic tissue that resides just under the iliac vein was elevated and off of the vein with a split and roll technique. The packet was dissected laterally to the circumflex vein and distally to the obturator nerve which was preserved. The proximal aspect of the packet was carried towards the bifurcation of the iliac vessels. A combination of monopolar and bipolar cautery were used to assist with control. After completing the dissection on both sides, the packets were collected and passed off of the table as specimens labeled "pelvic lymph nodes". My attention then returned to the prostate, with identification of the bladder neck aided by gentle traction on the Damon catheter and lateral to medial pressure at the presumed level of the bladder neck with the robotic instruments. An anterior cystotomy was made, the Damon balloon deflated and the catheter guided through the incision to allow anterior retraction. I attempted to prese rve maximal bladder neck musculature as I circumferentially dissected around the bladder neck. After incision through the posterior aspect of the mucosa, the dissection was carried through detrusor muscle until the bilateral ampullae of the vasa were identified. The previously dissected vasa and SVs were brought through the incision and used to elevated the prostate anteriorly. An incision in the lateral prostatic fascia was then made bilaterally to facilitate control of the vascular pedicles and preservation of the nerve bundles. Vasculature running along the posterior/lateral aspect of the prostate was preserved as well as the tissue containing the nerves. The pedicles were then controlled with a series of Weck clips. The apical attachments of the prostate were remaining at that stage. The DVC was divided after control with bipolar cautery over the prostate. Continuous inspection from anterior and lateral views allowed me to closely follow the apical contour of the prostate and maximally preserve urethral length and tissue. The prostate was entirely freed at that point, and collected in an EndoCatch bag before being moved out of the field of vision. Hemostasis was obtained with directed suture ligation of any bleeding vessels along the neurovascular bundles utilizing 3-0 v-Lock suture. Anastomosis of the bladder and urethra was completed utilizing a double armed V-Lock stitch. A new Damon catheter was inserted and the anastomosis tested with irrigation. There was no evidence of leak. A nery style stitch was placed bilaterally to functionally marsupialize the area of the lymph node dissection. The robot was undocked, the specimen extracted through expansion of the sharon- umbilical camera port. The fascia was closed with a series of 0-PDS figure of 8 stitches. All skin incisions were closed with 4-0 monocryl. All incisions and muscle layers were anesthesized with a combination of marcaine and Exparel. The case was concluded and the patient taken to the PACU in stable condition. Aime Vasquez, PAC assisted from incision to closure. I attest to the content of the Intraoperative Record and any orders documented therein. Any exceptions are noted below.
[2025-06-16 16:48] LABS: Hematocrit (blood only) 47.5 % (42.0-52.0); Hemoglobin 16.3 g/dl (14.0-18.0); Immature Granulocytes # (auto) 0.07 K/uL (0.01-0.20); Immature Granulocytes % (auto) 0.5 %; Mean Corpuscular Hemoglobin 31.8 pg (25.0-34.0); Mean Corpuscular Volume 92.6 fL (80.0-100.0); Platelet Count 185 K/uL (130-400); RDW Standard Deviation 44.5 fL (36.4-46.3); Red Blood Count 5.13 M/uL (4.70-6.10); White Blood Count 15.38 K/ul (4.8-10.8)
[2025-06-16 17:06] LABS: Anion Gap 9.0 (3-11); Blood Urea Nitrogen 20.0 mg/dl (6-23); Calcium 9.2 mg/dl (8.6-10.3); Carbon Dioxide 29.0 mmol/L (21-32); Chloride 101.0 mmol/L (98-107); Creatinine Clr Calc Pharmacy 73.8 ml/min; Glucose 174.0 mg/dl (70-99(Fasting)); Potassium 3.9 mmol/L (3.5-5.1); Sodium 139.0 mmol/L (136-145)
--- NOTE | 2025-06-16 17:45 | Anesthesiology Progress Note ---
Date of Service June 16, 2025 Anesthesia Post Procedure Vital Signs Vital Signs: Temp Pulse Pulse Resp BP BP Pulse Ox 06/16/25 17:30 79 18 124/60 98 06/16/25 17:15 81 16 141/77 H 98 06/16/25 17:00 98.2 F 81 12 152/74 H 98 06/16/25 16:50 75 16 144/78 H 94 06/16/25 16:40 77 17 140/78 99 06/16/25 16:30 81 20 154/79 H 100 06/16/25 16:24 97.2 F L 79 14 155/82 H 95 06/16/25 10:25 98.6 F 80 20 138/86 96 O2 Del Method O2 Flow Rate 06/16/25 17:30 Nasal Cannula 2 06/16/25 17:15 Nasal Cannula 2 06/16/25 17:00 Nasal Cannula 3 06/16/25 16:50 Room Air 06/16/25 16:40 Oxymask 4 06/16/25 16:30 Oxymask 7 06/16/25 16:24 Oxymask 7 06/16/25 10:25 Room Air Pain Intensity Pelvic: Pain Intensity: 2 Transfer of Care Handoff Completed per policy Notes Mental Status: alert / awake / arousable and participated in evaluation Patient Amnestic to Procedure: Yes Nausea / Vomiting: adequately controlled Pain: adequately controlled Airway Patency, RR, SpO2: stable & adequate BP & HR: stable & adequate Hydration State: stable & adequate Anesthetic Complications: no major complications apparent and Pt Satisfied with anesthetic care
[2025-06-16] MEDS ORDERED: HYDROmorphone INJ 0.5 MG/0.5 ML SYR IV PRN ×2 (17:54)
[2025-06-16] MEDS ORDERED: FAMOTIDINE 20 MG TAB PO PRN (17:54)
[2025-06-16] MEDS ORDERED: ACETAMINOPHEN 500 MG TAB PO PRN (17:54)
[2025-06-16] MEDS: SODIUM CHLORIDE 0.9% 1,000 ML IV SCH (18:19)
[2025-06-16] MEDS: ONDANSETRON INJ 2 MG/ML 2 ML VIAL IV PRN (18:20)
[2025-06-16] MEDS: DOCUSATE SODIUM 100 MG CAP PO SCH (21:10)
[2025-06-16] MEDS: ATORVASTATIN 10 MG TAB PO SCH (21:11)
[2025-06-17 03:55] VITALS: O2SAT 95
[2025-06-17] MEDS: LEVOTHYROXINE SODIUM 175 MCG TABLET PO SCH (06:06)
[2025-06-17 07:10] LABS: Hematocrit (blood only) 42.4 % (42.0-52.0); Hemoglobin 15.1 g/dl (14.0-18.0); Immature Granulocytes # (auto) 0.04 K/uL (0.01-0.20); Immature Granulocytes % (auto) 0.3 %; Mean Corpuscular Hemoglobin 33.0 pg (25.0-34.0); Mean Corpuscular Volume 92.8 fL (80.0-100.0); Platelet Count 209 K/uL (130-400); RDW Standard Deviation 44.2 fL (36.4-46.3); Red Blood Count 4.57 M/uL (4.70-6.10); White Blood Count 12.11 K/ul (4.8-10.8)
[2025-06-17 07:31] LABS: Anion Gap 9.0 (3-11); Blood Urea Nitrogen 20.0 mg/dl (6-23); Calcium 8.9 mg/dl (8.6-10.3); Carbon Dioxide 28.0 mmol/L (21-32); Chloride 102.0 mmol/L (98-107); Creatinine Clr Calc Pharmacy 95.4 ml/min; Glucose 189.0 mg/dl (70-99(Fasting)); Potassium 3.8 mmol/L (3.5-5.1); Sodium 139.0 mmol/L (136-145)
[2025-06-17 07:55] VITALS: PULSE 71; RESP 16; TEMP 98.1
[2025-06-17] MEDS: LISINOPRIL/HCTZ 20/12.5MG 1 TAB TAB PO SCH (08:26)
[2025-06-17] MEDS: MULTIVITAMIN TAB PO SCH (08:26)
--- NOTE | 2025-06-17 08:34 | Urology Progress Note ---
Date of Service June 17, 2025 Assessment & Plan (1) Prostate cancer: Plan: Postop day #1 status post prostatectomy Recovery on pace Ambulate this morning He wants to stay with clear liquid diet now and he will gradually advance his diet once he gets home Plan for tentative discharge later this morning Admission and Anticipated Discharge Date Admission Date: June 16, 2025 Subjective Subjectively doing pretty well Pain is tolerable He has not ambulated this morning but he was up and around last night Urine is clear Labs have all been appropriate Physical Exam Physical Exam: Abdomen soft, incisions appropriate Urine clear Results & Data Vital Signs (Past 12 Hours) Vital Signs Temp Pulse Resp BP Pulse Ox O2 Del Method 06/17/25 07:13 36.7 C 71 16 118/66 95 Room Air 06/17/25 03:54 36.6 C 70 18 138/75 95 Room Air 06/17/25 00:00 36.4 C L 72 18 129/69 96 Room Air PG Care Time/CCT Total # of Minutes Spent Total Time Spent with Patient: Total time spent is greater than 50% in coordination of care (as documented) at patient's floor/unit and/or counseling patient: Coding Level of Care Code None Diagnoses Prostate cancer C61
[2025-06-17 12:21] VITALS: BP 138/86
[2025-06-18] MEDS ORDERED: LEVOTHYROXINE SODIUM 150 MCG TABLET PO SCH (06:30)
--- NOTE | 2025-06-18 14:05 | Discharge Summary ---
Date of Service June 18, 2025 Admission HPI Per Admitting Provider 65-year-old male with prostate cancer who presents for robotic prostatectomy Admission Exam Per Admitting Provider No apparent distress Awake, alert, oriented No respiratory distress Heart regular rate and rhythm Abdomen soft, well-healed right upper quadrant subcostal scar, well-healed infra umbilical incision Legs without anomaly, no severe edema Principal Diagnosis Prostate cancer Discharge Exam Constitutional well developed and well nourished; no acute distress Respiratory normal respiratory effort; no respiratory distress and no labored breathing Musculoskeletal Head/Neck/Chest: normocephalic Skin no rashes, warm and dry Neurologic moves all extremities and awake Psychiatric A+Ox3, euthymic affect Genitourinary Damon intact Discharge Data Allergies Allergy/AdvReac Type Severity Reaction Status Date / Time latex Allergy Mild Rash Verified 06/16/25 10:15 Procedures Performed Operation Date: 06/16/25 11:50 Actual Procedures p Robotic Assisted Laparoscopic Retropubic Prostatectomy, bilateral Pelvic Lymph Node Dissection(Not Applicable) - Faustino Hutchinson MD Hospital Course (1) Prostate cancer: Plan 65-year-old male admitted status post robotic prostatectomy. Patient tolerated procedure well. No acute issues postoperatively. He remained afebrile and hemodynamically stable. Labs appropriate. Patient tolerated diet. Ambulated without issue. Reported minimal pain. Damon catheter with clear yellow urine and good output. Patient was subsequently discharged home on postop day 1 with a Damon catheter in place. He was in stable condition at time of discharge. Discharge instructions were reviewed and all questions were answered. Total Time Total Time Spent Total Time Spent (In Minutes): 15 Discharge Plan Discharge Items Patient Disposition: Home - Self-Care Reason For Visit: Malignant Neoplasm of Prostate Discharge Diagnosis: Prostate cancer Condition on Discharge: Good Activity: Per Instructions section Bathing Comment: Ok to shower. No tub baths or soaks. Sexual Activity: Wait until after follow-up appointment Exercise/Sports: Wait until after follow-up appointment Driving/Machine Use: Do not drive if taking prescription pain medication. Non-emergency contact: Surgeon and Urologist Call non-emergency contact if: you have any medication questions, your symptoms worsen, your pain is not controlled, you have a fever, your wound has increased redness, your wound has increased drainage and your wound pain has increased Follow-up/Referrals: Lula Lea CRNP [Primary Care Provider] - Faustino Hutchinson MD [Physician] - [facility],Nurse [FAKE FOR SCHEDULES] - Diet: Regular Addtl Attending Provider Instructions: Please take all medications as prescribed and keep all follow-ups as scheduled. Please call our office at [phone] with any questions, concerns or need to reschedule appointments for any reason. We are happy to assist you We have sent an antibiotic to your pharmacy of choice. Please begin antibiotic as prescribed the day BEFORE your scheduled catheter removal at [facility]. Please continue antibiotic every 12 hours until complete. Activity: We recommend having someone with you for the first few days after surgery to help care for you. For the first 2 weeks after surgery, we would like you to get up and walk around your house. However, we recommend limit physical activity that would increase your heart rate. This will allow your body to rest and heal. Take naps if you feel tired. Don't lift anything heavier than 10 pounds, mow the law or ride a bicycle until your follow-up appointment. Please avoid long car rides. Home Care: Unless directed otherwise, drink 6 to 8 glasses of water a day (enough to keep your urine light colored). This will also help keep a healthy flow of urine. We recommend using a stool softener for the first two weeks to avoid constipation. Damon Catheter or Suprapubic Catheter care: Keep the catheter well secured with either a leg back or leg strap with large bag. Empty your bag when it's about half full. You may notice some blood in the bag. This is normal after surgery and while the catheter is in place. Use mild soap (such as Dove or Dial) and water to wash the catheter and the head of your penis daily, or more frequently if needed. Return to your normal diet, we encourage good protein intake to promote healing. You may shower as normal. Please avoid tub baths or soaking until catheter removed and incisions well healed. Wearing sweat pants while you have the catheter is recommended, they will be more comfortable. Follow-up The urology office will contact you to arrange your follow-up visits Your final pathology report will be discussed at your physician follow-up appointment. Call [facility] at [phone] right away if you have any of the following: Chest pain or trouble breathing (call 911 or go to the hospital) Fever of 101F or higher, uncontrolled vomiting Heavy bleeding, clots, or bright red blood from the catheter Catheter that falls out or stops draining Foul-smelling discharge from your catheter Redness, swelling, warmth, or increased pain at your incision site Drainage, pus, or bleeding from your incision Pending Studies at Discharge: Yes (pathology) Stand-Alone Forms: My [facility], Smoking Cessation Medications and DC Order Prescriptions: New ciprofloxacin HCl 500 mg tablet 500 mg PO BID 3 Days Qty: 6 0RF Rx Instructions: Start 1 day prior to catheter removal oxycodone-acetaminophen [Percocet] 5-325 mg tablet 1 tab PO Q8H PRN (Reason: pain) Qty: 7 0RF Continued esomeprazole magnesium [Nexium] 20 mg capsule,delayed release(DR/EC) 20 mg PO DAILY PRN (Reason: Acid Reflux) naproxen sodium [Aleve] 220 mg capsule 440 mg PO DAILY PRN (Reason: Pain) [id number] mg capsule 1 cap PO DAILY lisinopril-hydrochlorothiazide 20-12.5 mg tablet 2 tab PO QAM Qty: 180 3RF atorvastatin 10 mg tablet 10 mg PO HS Qty: 90 3RF levothyroxine 175 mcg tablet 175 mcg PO .COMPLEX Qty: 45 3RF Rx Instructions: 175 mcg orally 2 days a week; takes on Sunday and Sunday Theralith XR 3.75-45-45-49.5 mg tablet extended release 4 tab PO DAILY multivitamin [Daily Multi-Vitamin] Tablet 1 tab PO DAILY sildenafil 100 mg tablet 100 mg PO DAILY PRN (Reason: sexual activity) Qty: 20 11RF Rx Instructions: administer 30 minutes to 4 hours before activity amoxicillin 500 mg tablet See Rx Instructions PO DAILY Qty: 14 1RF Rx Instructions: Take 4 talbets 1 hour prior to dental procedures orally daily; levothyroxine 150 mcg tablet 150 mcg PO .COMPLEX Qty: 60 3RF Rx Instructions: 150 mcg orally 5 days a week; takes Mon;Tue;Debra;Fri;Sat famotidine [Pepcid] 20 mg Tablet 20 mg PO DAILY PRN (Reason: Acid Reflux) Discontinued tamsulosin 0.4 mg capsule 0.4 mg PO DAILY Qty: 90 3RF Discharge Orders: Discharge Order (Routine); Ordered 06/17/25 Ordered By: Florence Leon Admission Data Admit Date/Time: 06/16/25 16:20 Attending Provider: Faustino Hutchinson Admit Provider: Faustino Hutchinson Primary Care Provider: Lula Lea Other Interventions: Discharge Summary Assessment (RN) Last Done: 06/17/25 12:10 Coding Level of Care Code 23635 IN/OBS DISCH 30 MIN/LESS Diagnoses Prostate cancer C61
--- NOTE | 2025-06-19 10:26 | Discharge Summary ---
Date of Service June 19, 2025 Admission HPI Per Admitting Provider 65-year-old male with prostate cancer who presents for robotic prostatectomy Principal Diagnosis prostate cancer Discharge Data Allergies Allergy/AdvReac Type Severity Reaction Status Date / Time latex Allergy Mild Rash Verified 06/16/25 10:15 Procedures Performed Operation Date: 06/16/25 11:50 Actual Procedures p Robotic Assisted Laparoscopic Retropubic Prostatectomy, bilateral Pelvic Lymph Node Dissection(Not Applicable) - Faustino Hutchinson MD Hospital Course (1) Prostate cancer: Patient admitted for a robotic prostatectomy - details of the procedure as dictated previously in my operative report - in summary, he tolerated the procedure very well - he was in stable condition overnight with appropriate urine output and stable labs - he was subsequently discharged home with a rodriguez catheter - he was in stable condition at the time of discharge Total Time Total Time Spent Total Time Spent (In Minutes): 15 Discharge Plan Discharge Items Patient Disposition: Home - Self-Care Reason For Visit: Malignant Neoplasm of Prostate Discharge Diagnosis: Prostate cancer Condition on Discharge: Good Activity: Per Instructions section Bathing Comment: Ok to shower. No tub baths or soaks. Sexual Activity: Wait until after follow-up appointment Exercise/Sports: Wait until after follow-up appointment Driving/Machine Use: Do not drive if taking prescription pain medication. Non-emergency contact: Surgeon and Urologist Call non-emergency contact if: you have any medication questions, your symptoms worsen, your pain is not controlled, you have a fever, your wound has increased redness, your wound has increased drainage and your wound pain has increased Follow-up/Referrals: Lula Lea CRNP [Primary Care Provider] - Faustino Hutchinson MD [Physician] - [facility],Nurse [FAKE FOR SCHEDULES] - Diet: Regular Addtl Attending Provider Instructions: Please take all medications as prescribed and keep all follow-ups as scheduled. Please call our office at [phone] with any questions, concerns or need to reschedule appointments for any reason. We are happy to assist you We have sent an antibiotic to your pharmacy of choice. Please begin antibiotic as prescribed the day BEFORE your scheduled catheter removal at [facility]. Please continue antibiotic every 12 hours until complete. Activity: We recommend having someone with you for the first few days after surgery to help care for you. For the first 2 weeks after surgery, we would like you to get up and walk around your house. However, we recommend limit physical activity that would increase your heart rate. This will allow your body to rest and heal. Take naps if you feel tired. Don't lift anything heavier than 10 pounds, mow the law or ride a bicycle until your follow-up appointment. Please avoid long car rides. Home Care: Unless directed otherwise, drink 6 to 8 glasses of water a day (enough to keep your urine light colored). This will also help keep a healthy flow of urine. We recommend using a stool softener for the first two weeks to avoid constipation. Rodriguez Catheter or Suprapubic Catheter care: Keep the catheter well secured with either a leg back or leg strap with large bag. Empty your bag when it's about half full. You may notice some blood in the bag. This is normal after surgery and while the catheter is in place. Use mild soap (such as Dove or Dial) and water to wash the catheter and the head of your penis daily, or more frequently if needed. Return to your normal diet, we encourage good protein intake to promote healing. You may shower as normal. Please avoid tub baths or soaking until catheter re moved and incisions well healed. Wearing sweat pants while you have the catheter is recommended, they will be more comfortable. Follow-up The urology office will contact you to arrange your follow-up visits Your final pathology report will be discussed at your physician follow-up appointment. Call [facility] at [phone] right away if you have any of the following: Chest pain or trouble breathing (call [phone] or go to the hospital) Fever of 101F or higher, uncontrolled vomiting Heavy bleeding, clots, or bright red blood from the catheter Catheter that falls out or stops draining Foul-smelling discharge from your catheter Redness, swelling, warmth, or increased pain at your incision site Drainage, pus, or bleeding from your incision Pending Studies at Discharge: Yes (pathology) Stand-Alone Forms: My [employer], Smoking Cessation Medications and DC Order Prescriptions: New ciprofloxacin HCl 500 mg tablet 500 mg PO BID 3 Days Qty: 6 0RF Rx Instructions: Start 1 day prior to catheter removal oxycodone-acetaminophen [Percocet] 5-325 mg tablet 1 tab PO Q8H PRN (Reason: pain) Qty: 7 0RF Continued esomeprazole magnesium [Nexium] 20 mg capsule,delayed release(DR/EC) 20 mg PO DAILY PRN (Reason: Acid Reflux) naproxen sodium [Aleve] 220 mg capsule 440 mg PO DAILY PRN (Reason: Pain) [id number] mg capsule 1 cap PO DAILY lisinopril-hydrochlorothiazide 20-12.5 mg tablet 2 tab PO QAM Qty: 180 3RF atorvastatin 10 mg tablet 10 mg PO HS Qty: 90 3RF levothyroxine 175 mcg tablet 175 mcg PO .COMPLEX Qty: 45 3RF Rx Instructions: 175 mcg orally 2 days a week; takes on Sunday and Sunday Theralith XR 3.75-45-45-49.5 mg tablet extended release 4 tab PO DAILY multivitamin [Daily Multi-Vitamin] Tablet 1 tab PO DAILY sildenafil 100 mg tablet 100 mg PO DAILY PRN (Reason: sexual activity) Qty: 20 11RF Rx Instructions: administer 30 minutes to 4 hours before activity amoxicillin 500 mg tablet See Rx Instructions PO DAILY Qty: 14 1RF Rx Instructions: Take 4 talbets 1 hour prior to dental procedures orally daily; levothyroxine 150 mcg tablet 150 mcg PO .COMPLEX Qty: 60 3RF Rx Instructions: 150 mcg orally 5 days a week; takes Mon;Tue;Debra;Fri;Sat famotidine [Pepcid] 20 mg Tablet 20 mg PO DAILY PRN (Reason: Acid Reflux) Discontinued tamsulosin 0.4 mg capsule 0.4 mg PO DAILY Qty: 90 3RF Discharge Orders: Discharge Order (Routine); Ordered 06/17/25 Ordered By: Florence Leon Admission Data Admit Date/Time: 06/16/25 16:20 Attending Provider: Faustino Hutchinson Admit Provider: Faustino Hutchinson Primary Care Provider: Lula Lea Other Interventions: Discharge Summary Assessment (RN) Last Done: 06/17/25 12:10 Coding Level of Care Code 53615 IN/OBS DISCH 30 MIN/LESS Diagnoses Prostate cancer C61
== END 2025-06-17 13:44 | disposition home or self-care (01) | DRG 708 ==
LOC: ASU 10:10 → 3E 16:20